=== PATIENT | female | born 1995 | race Two or more races ===

== ENCOUNTER 2019-12-16 14:41 | Emergency (ER) | payer OTHER ==
[~2019-12-16] VITALS: Ht 154.9 cm; Wt 49.9 kg
[2019-12-16] MEDS ORDERED: ONDANSETRON 4 MG TAB.RAPDIS SL ONE (15:30)
[2019-12-16] MEDS ORDERED: HYDROCODONE/APAP 5/325MG 1 EACH TABLET PO ONE (15:30)
[2019-12-16] MEDS ORDERED: ONDANSETRON 4 MG TAB.RAPDIS ONE (15:32)
[2019-12-16] MEDS ORDERED: HYDROCODONE/APAP 5/325MG 1 EACH TABLET ONE (15:32)
--- NOTE | 2019-12-16 16:40 | NUR ---
PATIENT AMBULATORY WITH STEADY GAIT, NO DISTRESS NOTED. Patient discharged to home in stable condition. Written and verbal after care instructions given. Patient verbalizes understanding of instruction.
[2019-12-16 16:41] VITALS: BP 105/62
== END 2019-12-16 16:41 | disposition home or self-care (01) ==
LOC: ER 14:44
DX: S39.012A Strain of muscle, fascia and tendon of lower back, initial encounter (principal); V49.49XA Driver injured in collision with other motor vehicles in traffic accident, initial encounter; Y93.89 Activity, other specified; Y92.488 Other paved roadways as the place of occurrence of the external cause; Y99.8 Other external cause status
CPT/HCPCS: 72110; 84703; 99284; Q0162